=== PATIENT | female | born 1990 | race Asian ===

== ENCOUNTER 2021-12-20 20:45 | Inpatient (IN) | payer BC ==
[2021-12-20 21:09] VITALS: BMI 23.9
[2021-12-20] MEDS ORDERED: Promethazine HCl 25 MG/ML VIAL IM PRN (21:56)
[2021-12-20] MEDS ORDERED: hydrALAZINE 20 MG/ML VIAL SLOW IVP PRN (21:56)
[2021-12-20] MEDS ORDERED: Ondansetron PF 4 MG/2 ML Vial IVP PRN (21:56)
[2021-12-20] MEDS ORDERED: Ibuprofen 800 MG TAB PO PRN (21:56)
[2021-12-20] MEDS ORDERED: HYDROcodone/Acetaminophen 5/325 mg Tablet PO PRN (21:56)
[2021-12-20] MEDS ORDERED: Lidocaine 1% (PF) 30 ML VIAL SC PRN (21:56)
[2021-12-20] MEDS ORDERED: Lactated Ringer's 1,000 ML IV SCH (22:00)
[2021-12-20] MEDS ORDERED: NS w/ Oxytocin 30 units 500 ML IV SCH (22:00)
[2021-12-20 22:18] LABS: Hemoglobin 11.1 g/dL (12.0-15.5); Mean Corpuscular HGB CONC 34.5 g/dL (32.0-36.0); Mean Corpuscular Hemoglobin 29.8 pg (27.0-33.0); Mean Corpuscular Volume 86.6 fl (81.6-98.3); Mean Platelet Volume 9.4 fl (7.4-10.4); Platelet Count 191 10x3/uL (150-450); RBC Distribution Width 13.2 % (11.5-14.5); Red Blood Cell (RBC) Count 3.72 10x6/uL (3.90-5.03); White Blood Cell (WBC) Count 9.6 10x3/uL (3.5-10.5)
[2021-12-20 22:43] LABS: ALT (SGPT) 15 U/L (8-55); AST (SGOT) 21 U/L (5-34); Albumin 3.4 g/dL (3.5-5.0); Alkaline Phosphatase 165 U/L (40-110); Anion Gap 14 mmol/L (10-20); BUN (Urea Nitrogen) 8 mg/dL (7.0-18.7); Bilirubin, Total 0.3 mg/dL (0.2-1.2); Calc. Creatinine Clearance 124 mL/min (70-130); Calcium 8.8 mg/dL (7.8-10.44); Carbon Dioxide 22 mmol/L (22-29); Chloride 104 mmol/L (98-107); Globulin 3.5 g/dL (2.4-3.5); Glucose 74 mg/dL (70-105); Protein, Total 6.9 g/dL (6.0-8.3); Sodium 137 mmol/L (136-145); Uric Acid 4.7 mg/dL (2.6-6.0)
[2021-12-20 23:03] LABS: Hep B Surf Ag Non-Reactive S/CO (NonReactive)
[2021-12-20 23:04] LABS: Syphilis Antibody Nonreactive (Nonreactive); Syphilis Antibody Index 0.03 S/CO (<1.00 Non-Reactive)
[2021-12-20 23:07] LABS: HBSAg Index 0.54 S/CO (0-0.99)
[2021-12-20 23:13] LABS: Magnesium 1.6 mg/dL (1.6-2.6)
[2021-12-20 23:19] LABS: SARS-CoV-2 NAA Rapid Test Not Detected (NotDetected)
[2021-12-20] MEDS: NS 0.9% w/ 40 MEQ KCL 1,000 ML IV SCH (23:32)
[2021-12-20] MEDS ORDERED: Acetaminophen 500 MG TAB PO PRN (23:33)
[2021-12-21] MEDS ORDERED: Terbutaline Sulfate 1 MG/ML VIAL ONE (05:05)
[2021-12-21] MEDS ORDERED: Morphine PF 10 MG/10 ML VIAL ONE (05:46)
[2021-12-21] MEDS ORDERED: Dexamethasone 4 mg/ml Vial ONE (05:46)
[2021-12-21] MEDS ORDERED: Oxytocin 10 UNITS/ML VIAL ONE (05:46)
[2021-12-21] MEDS ORDERED: Ondansetron PF 4 MG/2 ML Vial ONE (05:46)
[2021-12-21] MEDS ORDERED: Phenylephrine 40 MG/NS 250 ML 250 ML ONE (05:47)
[2021-12-21] MEDS ORDERED: ceFAZolin 2 GM/Dextrose 50 ML IVPB ONE (05:50)
[2021-12-21] MEDS ORDERED: Famotidine/PF 20 mg/2ml Vial SLOW IVP PRN (05:50)
[2021-12-21] MEDS ORDERED: Bicitra 30 ML UDCUP PO PRN (05:50)
[2021-12-21] MEDS ORDERED: Azithromycin 500 MG VIAL ONE (05:51)
[2021-12-21] MEDS ORDERED: Azithromycin 500 MG in Sodium Chloride 0.9% 250 ML 250 ML IVPB SCH (06:00)
[2021-12-21] MEDS ORDERED: ceFAZolin 2 GM/Dextrose 50 ML 2 GM in Premix Bag 1 BAG IVPB SCH (06:00)
[2021-12-21] MEDS ORDERED: Promethazine HCl 25 MG SUPP PR PRN (06:18)
[2021-12-21] MEDS ORDERED: Ketorolac Tromethamine 30 MG/ML VIAL IVP PRN (06:18)
[2021-12-21] MEDS ORDERED: diphenhydrAMINE 50 MG/ML VIAL IVP PRN (06:18)
[2021-12-21] MEDS ORDERED: Naloxone HCl 0.4 mg/ml Vial IV PRN (06:18)
[2021-12-21] MEDS ORDERED: Ondansetron PF 4 MG/2 ML Vial IVP PRN ×2 (06:18→09:36)
[2021-12-21] MEDS ORDERED: Naloxone HCl 0.4 mg/ml Vial IVP PRN ×2 (06:18)
[2021-12-21] MEDS ORDERED: L&D-Morphine 4 MG/ML VIAL SLOW IVP PRN (06:18)
[2021-12-21] MEDS ORDERED: Ondansetron HCl/PF 4 MG/2 ML Vial IVP PRN (06:18)
[2021-12-21] MEDS ORDERED: Promethazine HCl 25 MG/ML VIAL IM PRN (06:18)
[2021-12-21] MEDS ORDERED: Meperidine HCl/PF 25 MG/ML VIAL SLOW IVP PRN (06:18)
[2021-12-21] MEDS ORDERED: Hydrocerin (Eucerin) Cream 120 gm Jar TOP PRN (06:18)
[2021-12-21] MEDS ORDERED: Fentanyl 100 MCG/2 ML VIAL SLOW IVP PRN (06:18)
[2021-12-21] MEDS ORDERED: Ketorolac Tromethamine 30 MG/ML VIAL IVP SCH (06:30)
[2021-12-21] MEDS ORDERED: Communication Order-Pharmacy FS SCH (06:30)
[2021-12-21] MEDS ORDERED: Metoclopramide HCl 10 MG/2 ML VIAL ONE (06:32)
[2021-12-21] MEDS ORDERED: diphenhydrAMINE 50 MG/ML VIAL ONE (06:33)
[2021-12-21] MEDS ORDERED: Ketorolac Tromethamine 30 MG/ML VIAL ONE (06:36)
[2021-12-21] MEDS ORDERED: Lanolin Ointment 7 GM TUBE TOP PRN (09:36)
[2021-12-21] MEDS ORDERED: Bisacodyl 10 MG SUPP PR PRN (09:36)
[2021-12-21] MEDS ORDERED: Boostrix 0.5 ML (Tdap) VIAL IM ONE (09:36)
[2021-12-21] MEDS ORDERED: diphenhydrAMINE 25 MG CAP PO PRN (09:36)
[2021-12-21] MEDS ORDERED: NS w/ Oxytocin 30 units 500 ML IV SCH (09:36)
[2021-12-21] MEDS ORDERED: Simethicone Chewable 80 MG TAB PO PRN (09:36)
[2021-12-21] MEDS ORDERED: hydrALAZINE 20 MG/ML VIAL SLOW IVP PRN (09:36)
[2021-12-21] MEDS ORDERED: Prenatal Vitamin 1 TAB PO SCH (12:00)
[2021-12-21] MEDS ORDERED: Docusate 100 MG CAP PO SCH (12:00)
[2021-12-21] MEDS ORDERED: Ferrous Sulfate 325 MG TAB PO SCH (12:00)
[2021-12-21] MEDS: Potassium Chloride 20 MEQ in Premix Bag 1 BAG IVPB SCH ×2 (12:47→15:00)
[2021-12-21] MEDS: NS 0.9% w/ 40 MEQ KCL 1,000 ML IV SCH (13:32)
[2021-12-21] MEDS: Potassium Chloride 40 MEQ in Sodium Chloride 0.9% 500 ML IVPB SCH ×2 (13:50→20:12)
[2021-12-21 14:42] LABS: Potassium 2.8 mmol/L (3.5-5.1)
[2021-12-21] MEDS ORDERED: HYDROcodone/Acetaminophen 5/325 mg Tablet PO PRN ×2 (18:30)
[2021-12-21] MEDS: Ibuprofen 800 MG TAB PO SCH (21:40)
[2021-12-21] MEDS: Docusate 100 MG CAP PO SCH (21:40)
[2021-12-22] MEDS: Ferrous Sulfate 325 MG TAB PO SCH ×3 (03:57→21:42)
[2021-12-22 04:48] LABS: Anion Gap 10 mmol/L (10-20); BUN (Urea Nitrogen) 5 mg/dL (7.0-18.7); Calc. Creatinine Clearance 147 mL/min (70-130); Calcium 7.9 mg/dL (7.8-10.44); Carbon Dioxide 22 mmol/L (22-29); Chloride 112 mmol/L (98-107); Glucose 83 mg/dL (70-105); Potassium 3.5 mmol/L (3.5-5.1); Sodium 140 mmol/L (136-145)
[2021-12-22] MEDS: Ibuprofen 800 MG TAB PO SCH ×3 (06:31→21:18)
[2021-12-22] MEDS: Docusate 100 MG CAP PO SCH ×2 (08:27→21:18)
[2021-12-22] MEDS: Prenatal Vitamin 1 TAB PO SCH (08:27)
[2021-12-22] MEDS ORDERED: Acetaminophen 325 MG TAB PO PRN (09:47)
[2021-12-22] MEDS ORDERED: Ibuprofen 800 MG TAB PO SCH (14:00)
[2021-12-23] MEDS: Ibuprofen 800 MG TAB PO SCH (06:06)
[2021-12-23] MEDS: Ferrous Sulfate 325 MG TAB PO SCH (07:13)
[2021-12-23 08:11] VITALS: BP 136/86; TEMP 98.3
[2021-12-23] MEDS: Prenatal Vitamin 1 TAB PO SCH (08:11)
[2021-12-23] MEDS: Docusate 100 MG CAP PO SCH (08:11)
== END 2021-12-23 11:30 | disposition home or self-care (01) | DRG 788 ==
LOC: CSHLD/OP 20:45 → CSHLD 22:16 → CSHPP 12-21 09:30
PROVIDERS: ADMIT Obstetrics & Gynecology; ATTEND Obstetrics & Gynecology
PROC: 10D00Z1 Extraction of Products of Conception, Low, Open Approach (ICD-10-PCS; principal; 2021-12-21)
DX: O32.3XX0 Maternal care for face, brow and chin presentation, not applicable or unspecified (principal); Z3A.40 40 weeks gestation of pregnancy; Z37.0 Single live birth; O77.0 Labor and delivery complicated by meconium in amniotic fluid; Z20.822 Contact with and (suspected) exposure to COVID-19
CPT/HCPCS: 36415; 51702; 80048; 80053; 81003; 83735; 84550; 85027; 86780; 86850; 86900; 86901; 87340; 99285; J1100; J1200; J1885; J2274; J2405; J2590; J2765; J3480; J7030; U0002